=== PATIENT | male | born 1975 | race Two or more races ===

== ENCOUNTER 2024-06-03 00:18 | Inpatient (IN) | payer MEDICAID, OTHER ==
[~2024-06-03] VITALS: Ht 182.9 cm; Wt 69.8 kg
[2024-06-03 01:08] LABS: Basophils # (auto) 0.1 10 ^3/uL (0-0.2); Basophils % (auto) 0.8 % (0.0-2.0); Eosinophils # (auto) 0.1 10 ^3/uL (0-0.8); Eosinophils % (auto) 1.2 % (0.0-7.0); Hematocrit 47.1 % (41.0-53.0); Hemoglobin 16.4 g/dL (13.5-17.5); Lymphocytes # (auto) 3.2 10 ^3/uL (0.4-5.4); Mean Corpuscular Hgb Conc. 34.8 g/dL (32.0-36.0); Mean Corpuscular Volume 83.3 fL (80.0-100.0); Monocytes # (auto) 0.7 10 ^3/uL (0-1.3); Monocytes % (auto) 6.8 % (0.0-12.0); Neutrophils # (auto) 6.2 10 ^3/uL (1.6-8.6); Neutrophils % (auto) 60.2 % (37.0-80.0); Nucleated Red Blood Cells % 0.3 %; Red Blood Cells 5.65 10^6/uL (4.5-5.90); Red Cell Distribution Width 14.4 % (11.8-14.3); White Blood Cell 10.2 10^3/uL (4.4-10.8)
[2024-06-03 01:22] LABS: Partial Thromboplastin Time 26.7 SEC (24.5-34.5); Prothrombin Time 10.6 sec (9.3-11.8)
[2024-06-03 01:26] LABS: Alanine Aminotransferase 88 U/L (7-40); Albumin 4.4 g/dL (3.2-4.8); Alkaline Phosphatase 77 U/L (46-116); Anion Gap 9 (5-15); BUN/Creatinine Ratio 13.5 (10.0-20.0); Bilirubin, Total 0.5 mg/dL (0.2-1.0); Blood Urea Nitrogen 14 mg/dL (9-23); Calcium 9.8 mg/dL (8.7-10.4); Carbon Dioxide 23 mmol/L (20-30); Chloride 99 mmol/L (98-107); Glucose 236 mg/dL (74-106); Magnesium 1.7 mg/dL (1.6-2.6); Potassium 3.7 mmol/L (3.5-5.1); Sodium 131 mmol/L (136-145); Total Protein 7.5 g/dL (5.7-8.2)
[2024-06-03 01:36] LABS: Aspartate Aminotransferase 40 U/L (13-40)
[2024-06-03] MEDS: ONDANSETRON ODT 4 MG TAB PO ONE (04:40)
[2024-06-03] MEDS: FAMOTIDINE 20 MG TAB PO ONE (04:40)
[2024-06-03] MEDS: MAALOX PLUS or MAALOX 30 ML PO ONE (04:40)
[2024-06-03] MEDS: hydrALAZINE HCL 20 MG/ML VL IV ONE (05:23)
[2024-06-03 05:51] VITALS: PULSE 80; RESP 12; O2SAT 95
[2024-06-03] MEDS ORDERED: MORPHINE SULFATE INJ 2 MG/ml SYRG IV PRN (06:30)
[2024-06-03] MEDS ORDERED: ONDANSETRON HCL 4 MG/2 ML VIAL IV PRN (06:30)
[2024-06-03] MEDS ORDERED: NITROGLYCERIN 0.4 MG SL TAB SL PRN (06:30)
[2024-06-03] MEDS ORDERED: TEMAZEPAM 15 MG CAP PO PRN (06:30)
[2024-06-03] MEDS ORDERED: DEXTROSE (50%) 50ML SYRG IV PRN (06:30)
[2024-06-03] MEDS: ACCU-CHEK COMFORT CURVE STRIP VI SCH (07:00)
[2024-06-03 07:22] LABS: HDL Cholesterol 34 mg/dL (40-59)
[2024-06-03 07:23] LABS: Cholesterol 376 mg/dL (< 200)
[2024-06-03] MEDS: InsuLIN REG 1unit/0.01ml Soln (100units/ml) SC SCH (07:33)
[2024-06-03 07:35] LABS: Triglycerides 1842 mg/dL (< 150)
[2024-06-03 08:02] VITALS: PULSE 80; RESP 12; O2SAT 95
[2024-06-03] MEDS: LOSARTAN POTASSIUM 50 MG TAB PO SCH (10:09)
[2024-06-03] MEDS: ASPirin 81 mg TAB PO SCH (10:09)
[2024-06-03 11:04] LABS: Amphetamine Screen, Urine Neg (NEGATIVE)
[2024-06-03 11:05] LABS: Barbiturate Scree,Urine Neg (NEGATIVE)
[2024-06-03 11:07] LABS: Benzodiazephine Screen, Urine Neg (NEGATIVE); Cocaine Screen, Urine Neg (NEGATIVE); Opiate Scree,Urine Neg (NEGATIVE); Phencyclidine Screen, Urine Neg (NEGATIVE)
[2024-06-03 11:08] LABS: Cannabinoid Screen, Urine Neg (NEGATIVE)
[2024-06-03] MEDS: ACETAMINOPHEN 325 MG TAB PO PRN (14:05)
[2024-06-03 15:59] LABS: Triglycerides 948 mg/dL (< 150)
[2024-06-03 16:01] LABS: Cholesterol 303 mg/dL (< 200); HDL Cholesterol 30 mg/dL (40-59)
[2024-06-03 21:42] VITALS: PULSE 88; RESP 18; O2SAT 92
[2024-06-03] MEDS ORDERED: ATORVASTATIN 20 MG TAB PO SCH (22:00)
[2024-06-03] MEDS: METOPROLOL TARTRATE 25 MG TAB PO SCH (22:36)
[2024-06-03] MEDS: SACUBITRIL-VALSARTAN 24mg/26mg TAB PO SCH (22:36)
[2024-06-03] MEDS: GEMFIBROZIL 600 MG TAB PO SCH (22:36)
[2024-06-03 22:58] VITALS: BP 141/94; PULSE 89; RESP 18; TEMP 98.3; O2SAT 94
[2024-06-04] VITALS (16 sets, daily range): BP systolic 122–154; BP diastolic 83–109; PULSE 78–103; RESP 15–20; TEMP 97.7–98.6; O2SAT 93–99
[2024-06-04] MEDS: hydrALAZINE HCL 20 MG/ML VL IV PRN (06:18)
[2024-06-04 06:47] LABS: Alanine Aminotransferase 86 U/L (7-40); Albumin 4.1 g/dL (3.2-4.8); Alkaline Phosphatase 67 U/L (46-116); Anion Gap 6 (5-15); Aspartate Aminotransferase 50 U/L (13-40); BUN/Creatinine Ratio 12.9 (10.0-20.0); Blood Urea Nitrogen 11 mg/dL (9-23); Calcium 9.7 mg/dL (8.7-10.4); Carbon Dioxide 27 mmol/L (20-30); Chloride 101 mmol/L (98-107); Glucose 202 mg/dL (74-106); Potassium 3.7 mmol/L (3.5-5.1); Sodium 134 mmol/L (136-145)
[2024-06-04 06:48] LABS: Basophils # (auto) 0.1 10 ^3/uL (0-0.2); Basophils % (auto) 0.7 % (0.0-2.0); Bilirubin, Total 0.7 mg/dL (0.2-1.0); Eosinophils # (auto) 0.2 10 ^3/uL (0-0.8); Eosinophils % (auto) 2.5 % (0.0-7.0); Hematocrit 47.3 % (41.0-53.0); Hemoglobin 16.3 g/dL (13.5-17.5); Lymphocytes # (auto) 2.7 10 ^3/uL (0.4-5.4); Lymphocytes % (auto) 33.4 % (10.0-50.0); Mean Corpuscular Hemoglobin 28.3 pg (28.0-32.0); Mean Corpuscular Hgb Conc. 34.4 g/dL (32.0-36.0); Mean Corpuscular Volume 82.1 fL (80.0-100.0); Monocytes # (auto) 0.6 10 ^3/uL (0-1.3); Monocytes % (auto) 7.6 % (0.0-12.0); Neutrophils # (auto) 4.5 10 ^3/uL (1.6-8.6); Neutrophils % (auto) 55.8 % (37.0-80.0); Nucleated Red Blood Cells % 0.2 %; Red Blood Cells 5.76 10^6/uL (4.5-5.90); Red Cell Distribution Width 14.4 % (11.8-14.3); Total Protein 7.1 g/dL (5.7-8.2); White Blood Cell 8.1 10^3/uL (4.4-10.8)
[2024-06-04] MEDS ORDERED: METF-371 PO (07:45)
[2024-06-04] MEDS ORDERED: LOSA-534 PO (07:45)
[2024-06-04] MEDS: SPIRONOLACTONE 25 MG TAB PO SCH (10:17)
[2024-06-04] MEDS: EMPAGLIFLOZIN 10 MG TAB PO SCH (10:18)
[2024-06-04] MEDS: IODIXANOL 320MG/ML 100ML BTL IV ONE (12:17)
[2024-06-04] MEDS: VERAPAMIL 2.5MG/ML INJ 2ML VIAL IV ONE (13:37)
[2024-06-04] MEDS: ANGIOMAX 250 MG VIAL IV ONE (13:37)
[2024-06-04] MEDS: MIDAZOLAM HCL 2MG/2ML 2ml VIAL (1mg/ml) ONE (13:37)
[2024-06-04] MEDS: HEPARIN SODIUM (PORCINE) 5000 UNITS/ML 1ML VIAL ONE (13:37)
[2024-06-04] MEDS: fentaNYL CITRATE 100 MCG/2 ML VL ONE (13:37)
[2024-06-04] MEDS: LIDOCAINE 2%HCL (LOCAL ANESTH.) INJ 20ML MDV ONE (13:38)
[2024-06-04] MEDS: SODIUM CHL 0.9% 50 ML ONE (13:38)
[2024-06-04 14:17] LABS: Albumin 4.3 g/dL (3.2-4.8)
[2024-06-04 14:18] LABS: Bilirubin, Direct 0.1 mg/dL (<0.3); Bilirubin, Total 0.6 mg/dL (0.2-1.0)
[2024-06-04] MEDS: ATROPINE SULF 1 MG/10ml SYR ONE (15:28)
[2024-06-04] MEDS: CLOPIDOGREL BISULFATE 75 MG TAB ONE (15:29)
[2024-06-04] MEDS: METOPROLOL TARTRATE 25 MG TAB PO SCH (21:41)
[2024-06-04] MEDS: INSULIN 70/30 1unit/0.01ml Susp (100units/ml) SC SCH (21:46)
[2024-06-04] MEDS ORDERED: ATORVASTATIN 20 MG TAB PO SCH (22:00)
[2024-06-05] VITALS (8 sets, daily range): BP systolic 120–141; BP diastolic 88–105; PULSE 79–102; RESP 18–20; TEMP 97.6–98.7; O2SAT 95–97
[2024-06-05 07:18] LABS: Alanine Aminotransferase 71 U/L (7-40); Albumin 4.3 g/dL (3.2-4.8); Alkaline Phosphatase 72 U/L (46-116); Anion Gap 7 (5-15); Aspartate Aminotransferase 30 U/L (13-40); BUN/Creatinine Ratio 12.8 (10.0-20.0); Bilirubin, Total 0.7 mg/dL (0.2-1.0); Blood Urea Nitrogen 14 mg/dL (9-23); Calcium 10.4 mg/dL (8.7-10.4); Carbon Dioxide 27 mmol/L (20-30); Chloride 102 mmol/L (98-107); Glucose 132 mg/dL (74-106); Potassium 3.7 mmol/L (3.5-5.1); Sodium 136 mmol/L (136-145); Total Protein 7.3 g/dL (5.7-8.2)
[2024-06-05] MEDS: ASPirin 81 mg TAB PO SCH (10:23)
[2024-06-05] MEDS: CLOPIDOGREL BISULFATE 75 MG TAB PO SCH (10:23)
[2024-06-06 01:01] VITALS: BP 122/88; PULSE 81; RESP 20; TEMP 98; O2SAT 96
[2024-06-06 05:00] VITALS: BP 116/86; PULSE 83; RESP 18; TEMP 97.7; O2SAT 96
[2024-06-06 08:30] VITALS: PULSE 76; RESP 18
[2024-06-06 08:54] VITALS: BP 122/84; PULSE 80; RESP 20; TEMP 97.5; O2SAT 95
[2024-06-06 12:29] VITALS: BP 126/94; PULSE 79; RESP 20; TEMP 97.5; O2SAT 93
[2024-06-06] MEDS ORDERED: ASPI-325 PO (12:44)
[2024-06-06] MEDS ORDERED: CLOP75TA70 PO (12:44)
[2024-06-06 16:24] VITALS: BP 122/84; PULSE 80
[2024-06-06] MEDS ORDERED: ATOR20TA50 PO (22:46)
[2024-06-06] MEDS ORDERED: GLIP5TAB21 PO (22:48)
== END 2024-06-06 18:11 | disposition home or self-care (01) | DRG 174 ==
LOC: ER 00:18 → TELE-WESTW 06:28 → TELE 06:28 → TELE-WESTW 21:58
PROVIDERS: ADMIT Internal Medicine; ATTEND Internal Medicine
PROC: 027034Z Dilation of Coronary Artery, One Artery with Drug-eluting Intraluminal Device, Percutaneous Approach (ICD-10-PCS; principal; 2024-06-04)
PROC: 4A023N7 Measurement of Cardiac Sampling and Pressure, Left Heart, Percutaneous Approach (ICD-10-PCS; 2024-06-04)
PROC: B211YZZ Fluoroscopy of Multiple Coronary Arteries using Other Contrast (ICD-10-PCS; 2024-06-04)
PROC: 4A033BC Measurement of Arterial Pressure, Coronary, Percutaneous Approach (ICD-10-PCS; 2024-06-04)
DX: I21.4 Non-ST elevation (NSTEMI) myocardial infarction (principal); I50.23 Acute on chronic systolic (congestive) heart failure; E11.65 Type 2 diabetes mellitus with hyperglycemia; E66.9 Obesity, unspecified; E78.5 Hyperlipidemia, unspecified; I16.1 Hypertensive emergency; Z68.20 Body mass index [BMI] 20.0-20.9, adult; I25.10 Atherosclerotic heart disease of native coronary artery without angina pectoris; I11.0 Hypertensive heart disease with heart failure; E11.9 Type 2 diabetes mellitus without complications; Z79.4 Long term (current) use of insulin; Z79.899 Other long term (current) drug therapy
CPT/HCPCS: 36415; 71045; 80053; 80061; 80076; 80307; 82962; 83036; 83735; 83880; 84443; 84484; 85025; 85610; 85730; 87081; 93005; 93306; 99152; G0378; J1815; J2250; Q0162; Q9967

== ENCOUNTER 2024-07-24 13:32 | Emergency (ER) | payer MEDICAID ==
[~2024-07-24] VITALS: Ht 182.9 cm; Wt 102.4 kg
[~2024-07-24 13:32] MED LIST: ASPI-325 PO; ATOR20TA50 PO; CLOP75TA70 PO; GLIP5TAB21 PO; LOSA-534 PO; METF-371 PO
[2024-07-24 13:33] VITALS: TEMP 98.2
[2024-07-24 14:10] LABS: Basophils # (auto) 0.1 10 ^3/uL (0-0.2); Basophils % (auto) 0.7 % (0.0-2.0); Eosinophils # (auto) 0.1 10 ^3/uL (0-0.8); Hematocrit 44.4 % (41.0-53.0); Hemoglobin 15.3 g/dL (13.5-17.5); Lymphocytes # (auto) 2.5 10 ^3/uL (0.4-5.4); Lymphocytes % (auto) 26.4 % (10.0-50.0); Mean Corpuscular Hemoglobin 29.2 pg (28.0-32.0); Mean Corpuscular Hgb Conc. 34.5 g/dL (32.0-36.0); Mean Corpuscular Volume 84.5 fL (80.0-100.0); Monocytes # (auto) 0.5 10 ^3/uL (0-1.3); Monocytes % (auto) 5.6 % (0.0-12.0); Neutrophils # (auto) 6.2 10 ^3/uL (1.6-8.6); Neutrophils % (auto) 66.3 % (37.0-80.0); Nucleated Red Blood Cells % 0.2 %; Platelet Count (auto) 313 10^3/uL (140-450); Red Blood Cells 5.26 10^6/uL (4.5-5.90); White Blood Cell 9.4 10^3/uL (4.4-10.8)
[2024-07-24 14:32] LABS: Alanine Aminotransferase 34 U/L (7-40); Alkaline Phosphatase 74 U/L (46-116); Anion Gap 7 (5-15); Aspartate Aminotransferase 22 U/L (13-40); Calcium 10.8 mg/dL (8.7-10.4); Carbon Dioxide 27 mmol/L (20-31); Chloride 103 mmol/L (98-107); Glucose 152 mg/dL (74-106); Magnesium 1.9 mg/dL (1.6-2.6); Potassium 4.2 mmol/L (3.5-5.1); Sodium 137 mmol/L (136-145)
[2024-07-24 14:33] LABS: Bilirubin, Total 0.5 mg/dL (0.2-1.0); Total Protein 7.8 g/dL (5.7-8.2)
[2024-07-24 14:37] LABS: BUN/Creatinine Ratio 16.1 (10.0-20.0); Blood Urea Nitrogen 15 mg/dL (9-23)
[2024-07-24 15:43] VITALS: BP 180/114; PULSE 99; RESP 17; O2SAT 96
[2024-07-24] MEDS: hydrALAZINE HCL 10 MG TAB PO ONE (15:45)
== END 2024-07-24 22:42 | disposition left against medical advice (07) ==
LOC: ER 13:32
DX: R07.89 Other chest pain (principal); Z53.21 Procedure and treatment not carried out due to patient leaving prior to being seen by health care provider
CPT/HCPCS: 36415; 71046; 80053; 82962; 83735; 84484; 85025; 93005